=== PATIENT | male | born 1955 | race African-American/Black ===

== ENCOUNTER → 2017-01-18 10:09 | Emergency (ER) | payer OTHER ==
[~2017-01-18 10:09] MED LIST: NS 0.9% 1000 ML* 1,000 ML IV ONE; methylPREDNISolone 125 MG* 2 ML VIAL IV ONE
[2017-01-18 11:07] LABS: Hematocrit 41 % (42-52); Hemoglobin 13.6 g/dl (14.0-18.0); Mean Corpuscular HGB Conc 33 g/dl (31-36); Mean Corpuscular Hemoglobin 29 pg (27-31); Mean Corpuscular Volume 87 fL (80-94); Mean Platelet Volume 7 um3 (7.4-10.4); Red Cell Distribution Width 13 % (10.5-15); White Blood Count 9.8 10^3/ul (3.5-10.8)
[2017-01-18] MEDS: Albuterol/Ipratropium NEB.SOL* Albuterol 2.5 MG/Ipratropium 0.5 MG 3 ML INH SCH (11:17)
--- NOTE | 2017-01-18 11:21 | RAD ---
INDICATION: Short of breath COMPARISON: July 12, 2016 TECHNIQUE: PA and lateral dual-energy views were obtained. FINDINGS: Bones/Soft Tissues: There are no acute bony findings. There is a left-sided cardiac pacemaker. Cardiomediastinal: The cardiomediastinal silhouette is normal. Lungs: There is mild right middle lobe atelectasis. The lungs are otherwise clear. Pleura: There are no pleural effusions. 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 IMPRESSION: MILD RIGHT BASILAR ATELECTASIS. EXAMINATION IS OTHERWISE UNCHANGED. SUGGEST FOLLOW-UP INDICATED.
[2017-01-18 11:27] LABS: Albumin 3.6 g/dL (3.2-5.2); BUN/Creatinine Ratio 22.5 (8-20); C Reactive Protein 19.71 mg/L (< 5.00); Calcium 8.7 mg/dL (8.6-10.3); EGFR African American 111.4 (>60); EGFR Non-African American 86.6 (>60); Globulin 3.5 g/dL (2-4); Potassium 4.3 mmol/L (3.5-5.0); Total Bilirubin 0.4 mg/dL (0.2-1.0); Total Protein 7.1 g/dL (6.4-8.9); Troponin I 0.03 ng/mL (<0.04)
[2017-01-18 11:46] LABS: Urine Bacteria Absent (Absent); Urine Bilirubin Negative (Negative); Urine Glucose 3+(>=500 mg/dL) (Negative); Urine Nitrite Negative (Negative)
[2017-01-18 14:03] VITALS: BP 143/78
--- NOTE | 2017-01-19 19:20 | ED ---
Myke Jean Baptiste Anna, scribed for Chester Rankin MD on 01/18/17 at 1228 . Shortness of Breath - HPI Summary HPI Summary: Patient is a 62 y/o male coming to [facility] presenting with the onset of constant SOB that began this morning at 0800. He additionally has a cough. Denies CP, fever, chills. He received an albuterol treatment via EMS STAFF TOXICOLOGIST, which alleviated the symptoms somewhat. His history is significant for COPD, HTN, DM, and a pacemaker. Patient reports that he smokes "a lot." Patient medications were reviewed on this visit. - History of Current Complaint Chief Complaint: EDShortnessOfBreath Time Seen by Provider: 01/18/17 10:43 Hx Obtained From: Patient, Family/Dental Hygienist Mobile Coordinator - accompanied by friends - Allergy/Home Medications Allergies/Adverse Reactions: Allergies Allergy/AdvReac Type Severity Reaction Status Date / Time Aspirin Allergy Unknown Verified 01/18/17 11:10 Reaction Details Ibuprofen [From Motrin] Allergy Swelling Verified 01/18/17 11:10 Penicillins Allergy Swelling Verified 01/18/17 11:10 PMH/Surg Hx/FS Hx/Imm Hx Endocrine/Hematology History: Reports: Hx Diabetes Cardiovascular History: Reports: Hx Hypertension, Hx Pacemaker/ICD Respiratory History: Reports: Hx Asthma, Hx Chronic Obstructive Pulmonary Disease (COPD) Infectious Disease History: No Infectious Disease History: Denies: Traveled Outside the [place] in Last 30 Days - Family History Known Family History: Positive: Hypertension, Diabetes - Social History Alcohol Use: None Substance Use Type: Reports: None Smoking Status (MU): Heavy Every Day Tobacco Smoker Cessation Counseling: Counseled 3+Min - 10 Min Review of Systems Negative: Fever, Chills Negative: Chest Pain Positive: Shortness Of Breath, Cough All Other Systems Reviewed And Are Negative: Yes Physical Exam - Summary Physical Exam Summary: VITAL SIGNS: Reviewed. GENERAL: Patient is an obese male who is lying comfortable in the stretcher. Patient is in some respiratory distress, but he is able to speak in full sentences. HEAD AND FACE: No signs of trauma. No ecchymosis, hematomas or skull depressions. No sinus tenderness. EYES: PERRLA, EOMI x 2, No injected conjunctiva, no nystagmus. EARS: Hearing grossly intact. Ear canals and tympanic membranes are within normal limits. MOUTH: Oropharynx within normal limits. NECK: Supple, trachea is midline, no adenopathy, no JVD, no carotid bruit, no c- spine tenderness, neck with full ROM. CHEST: Symmetric, no tenderness at palpation LUNGS: Decreased breath sounds bilaterally with wheezing. CVS: Regular rate and rhythm, S1 and S2 present, no murmurs or gallops appreciated. ABDOMEN: Soft, non-tender. No signs of distention. No rebound no guarding, and no masses palpated. Bowel sounds are normal. EXTREMITIES: FROM in all major joints, no edema, no cyanosis or clubbing. NEURO: Alert and oriented x 3. No acute neurological deficits. Speech is normal and follows commands. SKIN: Dry and warm Triage Information Reviewed: Yes Vital Signs On Initial Exam: Initial Vitals Temp Pulse Resp BP Pulse Ox 98.7 F 96 15 140/72 99 01/18/17 10:10 01/18/17 10:10 01/18/17 10:10 01/18/17 10:10 01/18/17 10:10 Vital Signs Reviewed: Yes - Mely Coma Scale Coma Scale Total: 15 Diagnostics - Vital Signs Vital Signs Temp Pulse Resp BP Pulse Ox 01/18/17 12:00 103 16 135/65 97 01/18/17 11:28 22 01/18/17 11:18 96 14 99 01/18/17 11:10 133/65 01/18/17 11:03 98 17 97 01/18/17 11:02 98.7 F 99 15 140/72 99 01/18/17 11:00 98 14 98 01/18/17 10:30 98 15 140/72 98 01/18/17 10:22 100 133/68 99 01/18/17 10:10 98.7 F 96 15 140/72 99 - Laboratory Lab Results: Lab Results 01/18/17 01/18/17 01/18/17 Range/Units 10:50 10:50 10:50 WBC 9.8 (3.5-10.8) 10^3/ul RBC 4.70 (4.0-5.4) 10^6/ul Hgb 13.6 L (14.0-18.0) g/dl Hct 41 L (42-52) % MCV 87 (80-94) fL MCH 29 (27-31) pg MCHC 33 (31-36) g/dl RDW 13 (10.5-15) % Plt Count 272 (150-450) 10^3/ul MPV 7 L (7.4-10.4) um3 Neut % (Auto) 57.0 (38-83) % Lymph % (Auto) 31.1 (25-47) % [place] % (Auto) 8.0 (1-9) % Eos % (Auto) 3.1 (0-6) % Baso % (Auto) 0.8 (0-2) % Absolute Neuts (auto) 5.6 (1.5-7.7) 10^3/ul Absolute Lymphs (auto) 3.1 (1.0-4.8) 10^3/ul Absolute Monos (auto) 0.8 (0-0.8) 10^3/ul Absolute Eos (auto) 0.3 (0-0.6) 10^3/ul Absolute Basos (auto) 0.1 (0-0.2) 10^3/ul Absolute Nucleated RBC 0.01 10^3/ul Nucleated RBC % 0.1 APTT 30.2 (26.0-36.3) seconds Sodium 133 (133-145) mmol/L Potassium 4.3 (3.5-5.0) mmol/L Chloride 100 L (101-111) mmol/L Carbon Dioxide 27 (22-32) mmol/L Anion Gap 6 (2-11) mmol/L BUN 20 (6-24) mg/dL Creatinine 0.89 (0.67-1.17) mg/dL Est GFR ( Amer) 111.4 (>60) Est GFR (Non-Af Amer) 86.6 (>60) BUN/Creatinine Ratio 22.5 H (8-20) Glucose 317 H (70-100) mg/dL Lactic Acid (0.5-2.0) mmol/L Calcium 8.7 (8.6-10.3) mg/dL Total Bilirubin 0.40 (0.2-1.0) mg/dL AST 11 L (13-39) U/L ALT 8 (7-52) U/L Alkaline Phosphatase 104 (34-104) U/L Total Creatine Kinase 70 (10-223) U/L Troponin I 0.03 (<0.04) ng/mL C-Reactive Protein 19.71 H (< 5.00) mg/L B-Natriuretic Peptide ( - 100) pg/mL Total Protein 7.1 (6.4-8.9) g/dL Albumin 3.6 (3.2-5.2) g/dL Globulin 3.5 (2-4) g/dL Albumin/Globulin Ratio 1.0 (1-3) Urine Color Urine Appearance Urine pH (5-9) Ur Specific [place] (1.010-1.030) Urine Protein (Negative) Urine Ketones (Negative) Urine Blood (Negative) Urine Nitrate (Negative) Urine Bilirubin (Negative) Urine Urobilinogen (Negative) Ur Leukocyte Esterase (Negative) Urine WBC (Auto) (Absent) Urine RBC (Auto) (Absent) Ur Squamous Epith Cells (Absent) Urine Bacteria (Absent) Urine Glucose (Negative) 01/18/17 01/18/17 01/18/17 Range/Units 10:50 10:50 11:23 WBC (3.5-10.8) 10^3/ul RBC (4.0-5.4) 10^6/ul Hgb (14.0-18.0) g/dl Hct (42-52) % MCV (80-94) fL MCH (27-31) pg MCHC (31-36) g/dl RDW (10.5-15) % Plt Count (150-450) 10^3/ul MPV (7.4-10.4) um3 Neut % (Auto) (38-83) % Lymph % (Auto) (25-47) % [place] % (Auto) (1-9) % Eos % (Auto) (0-6) % Baso % (Auto) (0-2) % Absolute Neuts (auto) (1.5-7.7) 10^3/ul Absolute Lymphs (auto) (1.0-4.8) 10^3/ul Absolute Monos (auto) (0-0.8) 10^3/ul Absolute Eos (auto) (0-0.6) 10^3/ul Absolute Basos (auto) (0-0.2) 10^3/ul Absolute Nucleated RBC 10^3/ul Nucleated RBC % APTT (26.0-36.3) seconds Sodium (133-145) mmol/L Potassium (3.5-5.0) mmol/L Chloride (101-111) mmol/L Carbon Dioxide (22-32) mmol/L Anion Gap (2-11) mmol/L BUN (6-24) mg/dL Creatinine (0.67-1.17) mg/dL Est GFR ( Amer) (>60) Est GFR (Non-Af Amer) (>60) BUN/Creatinine Ratio (8-20) Glucose (70-100) mg/dL Lactic Acid 1.2 (0.5-2.0) mmol/L Calcium (8.6-10.3) mg/dL Total Bilirubin (0.2-1.0) mg/dL AST (13-39) U/L ALT (7-52) U/L Alkaline Phosphatase (34-104) U/L Total Creatine Kinase (10-223) U/L Troponin I (<0.04) ng/mL C-Reactive Protein (< 5.00) mg/L B-Natriuretic Peptide 20 ( - 100) pg/mL Total Protein (6.4-8.9) g/dL Albumin (3.2-5.2) g/dL Globulin (2-4) g/dL Albumin/Globulin Ratio (1-3) Urine Color Straw Urine Appearance Clear Urine pH 5.0 (5-9) Ur Specific [place] 1.011 (1.010-1.030) Urine Protein 2+(100 mg/dl) H (Negative) Urine Ketones Negative (Negative) Urine Blood Negative (Negative) Urine Nitrate Negative (Negative) Urine Bilirubin Negative (Negative) Urine Urobilinogen Negative (Negative) Ur Leukocyte Esterase 1+ H (Negative) Urine WBC (Auto) Trace(0-5/hpf) (Absent) Urine RBC (Auto) Absent (Absent) Ur Squamous Epith Cells Present H (Absent) Urine Bacteria Absent (Absent) Urine Glucose 3+(>=500 mg/dl) H (Negative) Result Diagrams: 01/18/17 10:50 01/18/17 10:50 Lab Statement: Any lab studies that have been ordered have been reviewed, and results considered in the medical decision making process. - Radiology CXR Xray Interpretation: Positive (See Comments) Radiology Interpretation Completed By: Radiologist - IMPRESSION: MILD RIGHT BASILAR ATELECTASIS. EXAMINATION IS OTHERWISE UNCHANGED. SUGGEST FOLLOW-UP INDICATED. - EKG 1015 Cardiac Rate: NL - 95 bpm EKG Rhythm: Sinus Rhythm ST Segment: Normal Ectopy: None EKG Interpretation: No ST elevations Course/Dx - Course Assessment/Plan: Test results WNL except slight anemia, CRP of 19.71, Glucose of 317.UA reveals no UTI. CXR shows atelectasis. In the ED course, pt was given IV fluids, duonebs and Solumedrol, and the symptoms improved. At this point, the pts O2 sat is 98 on RA. HR is 86. On PE, his lungs are clear to auscultation bilaterally. Pt was given smoking cessation instructions. The pt will be d/c home with f/u from PCP. A Rx for Prednisone was given. Was instructed to return if he experiences worsening SOB, fever, chills, or CP. He understands and agrees. I discussed all the findings and test results with the patient. Patient was instructed to return to the emergency room immediately if any of the symptoms return or worsens. Plan of care was discussed with the patient and understands and agrees. All questions were answered at patient satisfaction. There were no further complaints or concerns. Lung exam before discharge: CTA B/L. Good air exchange. No wheezing or crackles heard. CVS: S1 and S2 present. No murmurs appreciated. Patient is alert and oriented x 3. Patient is hemodynamically stable. Patient will be discharged home with follow up assistant credit manager in the next 2-3 days - Diagnoses Differential Diagnosis/HQI/PQRI: Positive: Asthma, Bronchitis, COPD Exacerbation Provider Diagnoses: COPD exacerbation Discharge - Discharge Plan Condition: Stable Disposition: HOME Prescriptions: predniSONE TAB* [Deltasone TAB*] 40 mg PO DAILY #8 tab Patient Education Materials: Prednisone (By mouth), COPD (Chronic Obstructive Pulmonary Disease) (ED), How to Stop Smoking (ED) Referrals: Jens Rodríguez [Primary Care Provider] - Additional Instructions: Follow up with primary care physician in 2-3 days. Return to ED for new or worsening symptoms. The documentation as recorded by the Myke gatica Anna accurately reflects the service I personally performed and the decisions made by me, Chester Rankin MD.
--- NOTE | 2017-01-20 09:55 | PN ---
Progress Note - Progress Note Note: Patient urine culture grew strep group B 10-25,000 which is likely containment so no further action needed.
== END | disposition home or self-care (01) ==
LOC: ED 10:09
DX: J44.1 Chronic obstructive pulmonary disease with (acute) exacerbation (principal); I10 Essential (primary) hypertension; E11.9 Type 2 diabetes mellitus without complications; Z95.0 Presence of cardiac pacemaker; Z88.0 Allergy status to penicillin; Z88.6 Allergy status to analgesic agent; F17.200 Nicotine dependence, unspecified, uncomplicated
CPT/HCPCS: 36415; 71020; 80053; 81003; 81015; 82550; 83605; 83880; 84484; 85025; 85730; 86140; 87077; 87086; 93005; 94640; 96360; 96374; 99283; A9270-GY; J2930

== ENCOUNTER 2017-05-17 17:43 | Emergency (ER) | payer OTHER ==
[2017-05-17 20:43] LABS: Urine Bacteria 1+ (Absent); Urine Bilirubin 1+ (Negative); Urine Glucose 1+(50 mg/dL) (Negative); Urine Nitrite Negative (Negative)
--- NOTE | 2017-05-17 20:57 | ED ---
Complaint/Male - History of Current Complaint Chief Complaint: EDUrogenitalProblems Time Seen by Provider: 05/17/17 19:20 - Allergies/Home Medications Allergies/Adverse Reactions: Allergies Allergy/AdvReac Type Severity Reaction Status Date / Time Aspirin Allergy Unknown Verified 01/18/17 11:10 Reaction Details Ibuprofen [From Motrin] Allergy Swelling Verified 01/18/17 11:10 Penicillins Allergy Swelling Verified 01/18/17 11:10 PMH/Surg Hx/FS Hx/Imm Hx Endocrine/Hematology History: Reports: Hx Diabetes Cardiovascular History: Reports: Hx Hypertension, Hx Pacemaker/ICD Respiratory History: Reports: Hx Asthma, Hx Chronic Obstructive Pulmonary Disease (COPD) Infectious Disease History: Yes Infectious Disease History: Denies: Traveled Outside the [place] in Last 30 Days - Family History Known Family History: Positive: Hypertension, Diabetes - Social History Alcohol Use: Rare Substance Use Type: Reports: None Smoking Status (MU): Former Smoker Physical Exam Vital Signs On Initial Exam: Initial Vitals Temp Pulse Resp BP Pulse Ox 96.9 F 125 17 116/75 96 05/17/17 17:58 05/17/17 17:58 05/17/17 17:58 05/17/17 17:58 05/17/17 17:58 - Mely Coma Scale Coma Scale Total: 15 Diagnostics - Vital Signs Vital Signs Temp Pulse Resp BP Pulse Ox 05/17/17 17:58 96.9 F 125 17 116/75 96 - Laboratory Lab Results: Lab Results 05/17/17 Range/Units 20:19 Urine Color [place] Urine Appearance Cloudy Urine pH 5.0 (5-9) Ur Specific [place] 1.025 (1.010-1.030) Urine Protein 2+(100 mg/dl) H (Negative) Urine Ketones Trace H (Negative) Urine Blood Negative (Negative) Urine Nitrate Negative (Negative) Urine Bilirubin 1+ (Negative) Urine Urobilinogen Positive H (Negative) Ur Leukocyte Esterase 3+ H (Negative) Urine WBC (Auto) 3+(>20/hpf) H (Absent) Urine RBC (Auto) Absent (Absent) Ur Squamous Epith Cells Present H (Absent) Urine Bacteria 1+ H (Absent) Hyaline Casts Present H (Absent) Granular Casts Present H (Absent) Urine Glucose 1+(50 mg/dl) H (Negative) Lab Statement: Any lab studies that have been ordered have been reviewed, and results considered in the medical decision making process.
[2017-05-17] MEDS ORDERED: HYDROcodone/ACETAMIN 5-325 MG* 1 TAB PO ONE (21:02)
--- NOTE | 2017-05-17 21:02 | ED ---
GI/ HPI - HPI Summary HPI Summary: 62 male presents to ED with complaints of scrotum/tenderness pain and swelling that began yesterday and worsened today. Patient states he also began to have discharge from the area today. Denies any urinary complaints. Normal bowel movements without blood. Denies abdominal pain. Denies ever having something like this in the past. Denies known fever or chills. Denies generalized feeling of illness. PMHx significant for DM, HTN, pacemaker. Has not taken any medications other than one norco earlier today that helped alleviate his pain. Describes discharge to be yellow/clear. Denies know STD history. No other complaints at this time. - History of Current Complaint Chief Complaint: EDUrogenitalProblems Time Seen by Provider: 05/17/17 19:20 Stated Complaint: NAUSEA/FEVER/TESTICLES SWOLLEN Hx Obtained From: Patient Onset/Duration: Started Days Ago, Still Present, Worse Since Timing: Constant Severity: Moderate Current Severity: Moderate Pain Intensity: 5 Additional Locations for Males: Scrotum Pain Characteristics: Aching, Pressure Additional Signs & Symptoms: Positive: Penile Swelling - scrotal swelling, Penile Discharge - scrotal discharge Aggravating Factor(s): Palpation, Movement Alleviating Factor(s): Medication - norco - Allergy/Home Medications Allergies/Adverse Reactions: Allergies Allergy/AdvReac Type Severity Reaction Status Date / Time Aspirin Allergy Unknown Verified 01/18/17 11:10 Reaction Details Ibuprofen [From Motrin] Allergy Swelling Verified 01/18/17 11:10 Penicillins Allergy Swelling Verified 01/18/17 11:10 PMH/Surg Hx/FS Hx/Imm Hx Endocrine/Hematology History: Reports: Hx Diabetes Cardiovascular History: Reports: Hx Hypertension, Hx Pacemaker/ICD Respiratory History: Reports: Hx Asthma, Hx Chronic Obstructive Pulmonary Disease (COPD) - Surgical History Surgery Procedure, Year, and Place: n/a - Immunization History Immunizations Up to Date: Yes Infectious Disease History: Yes Infectious Disease History: Denies: Traveled Outside the [place] in Last 30 Days - Family History Known Family History: Positive: Hypertension, Diabetes - Social History Alcohol Use: Rare Substance Use Type: Reports: None Smoking Status (MU): Former Smoker Review of Systems Constitutional: Negative Cardiovascular: Negative Respiratory: Negative Gastrointestinal: Negative Positive: other - scrotal pain and swelling Positive: Other - scrotal pain and swelling Neurological: Negative All Other Systems Reviewed And Are Negative: Yes Physical Exam Triage Information Reviewed: Yes Vital Signs On Initial Exam: Initial Vitals Temp Pulse Resp BP Pulse Ox 96.9 F 125 17 116/75 96 05/17/17 17:58 05/17/17 17:58 05/17/17 17:58 05/17/17 17:58 05/17/17 17:58 tachycardia noted Vital Signs Reviewed: Yes Appearance: Positive: Well-Appearing, No Pain Distress, Well-Nourished Skin: Positive: Warm, Skin Color Reflects Adequate Perfusion, Dry, Erythema @ - and significant edema with pain over scrotum/testicles with yellow/clear drainage, appears to be cellulitis. Negative: Cold, Soft Head/Face: Positive: Normal Head/Face Inspection Eyes: Positive: Conjunctiva Clear ENT: Positive: Hearing grossly normal Neck: Positive: Supple, Nontender, No Lymphadenopathy Respiratory/Lung Sounds: Positive: Clear to Auscultation, Breath Sounds Present. Negative: Decreased Breath Sounds, Rales, Rhonchi, Wheezes Cardiovascular: Positive: Normal, RRR, Pulses are Symmetrical in both Upper and Lower Extremities. Negative: Murmur, Rub Abdomen Description: Positive: Nontender, No Organomegaly, Soft. Negative: CVA Tenderness (R), CVA Tenderness (L), Distended, Guarding Bowel Sounds: Positive: Present Male Genital Exam: Positive: scrotum tenderness (R), scrotum tenderness (L), testicular tenderness (R), testicular tenderness (L), other - yellow to clear drainage, erythematous and edematous scrotal sac/skin appears to be cellulitis versus abscess, odor noted, tender to touch. penis appears normal without discharge swelling or tenderness. difficult to palpate testes due to edema. no obvious necrotizing faciitis or gangrene noted Musculoskeletal: Positive: Normal, Strength/ROM Intact Neurological: Positive: Normal, Sensory/Motor Intact, Alert, Oriented to Person Place, Time - painful due to scrotal tenderness and swelling, CN Intact II-III, Normal Gait Psychiatric: Positive: Affect/Mood Appropriate - Mely Coma Scale Coma Scale Total: 15 Diagnostics - Vital Signs Vital Signs Temp Pulse Resp BP Pulse Ox 05/17/17 17:58 96.9 F 125 17 116/75 96 - Laboratory Lab Results: Lab Results 05/17/17 Range/Units 20:19 Urine Color [place] Urine Appearance Cloudy Urine pH 5.0 (5-9) Ur Specific [place] 1.025 (1.010-1.030) Urine Protein 2+(100 mg/dl) H (Negative) Urine Ketones Trace H (Negative) Urine Blood Negative (Negative) Urine Nitrate Negative (Negative) Urine Bilirubin 1+ (Negative) Urine Urobilinogen Positive H (Negative) Ur Leukocyte Esterase 3+ H (Negative) Urine WBC (Auto) 3+(>20/hpf) H (Absent) Urine RBC (Auto) Absent (Absent) Ur Squamous Epith Cells Present H (Absent) Urine Bacteria 1+ H (Absent) Hyaline Casts Present H (Absent) Granular Casts Present H (Absent) Urine Glucose 1+(50 mg/dl) H (Negative) Result Diagrams: 05/17/17 22:05 05/17/17 22:05 Lab Statement: Any lab studies that have been ordered have been reviewed, and results considered in the medical decision making process. - Ultrasound No standard instances Ultrasound Interpretation: Positive (See Comments) - MARKED SCROTAL SOFT TISSUE SWELLING AND COMPLEX FLUID COLLECTIONS AROUND BOTH TESTICLES MOST CONSISTENT WITH SCROTAL CELLULITIS. RECOMMEND CLINICAL CORRELATION. CONSIDER UROLOGIC CONSULTATION. Ultrasound Interpretation Completed By: Radiologist Re-Evaluation - Re-Evaluation First Eval Re-Evaluation Time: 22:00 Change: Improved - patient had some pain relief, updated on current plan agrees and understands. would like to be transferred to [facility] if able. GIGU Course/Dx - Course Course Of Treatment: labs, urinalysis and ultrasound of testes obtained. showed significant scrotal cellulitis. very high WBC. abnormal gluecose and urinalysis shows uti. Patient does have diabetes. given fluids and IV antibitoics, vanco and levofloxacin, pain management (1 norco). Spoke with Dr Grimm, hospitalist at 9:30pm who stated no urologist production control technologist, obtain CT pelvis to rule out gangrene and transfer. Spoke with [facility] Dr Colunag at 10:24pm who accepted transfer ER to ER. Hold off on CT and they will obtain while patient is there, as it would delay transfer. Therefore was not obtained while here. Given fluids and medication, meets sepsis protocol although afebrile. Will be transferred via [facility], continuing fluids and antibiotics on teletypesetter monitor. Check sugar en route. - Diagnoses Differential Diagnoses - Male: Epididymitis, Orchitis, Phimosis/Paraphimosis, STD, Testicular Torsion, Urinary Tract Infection, Other - cellulitis Provider Diagnoses: Cellulitis of scrotum - Physician Notifications Discussed Care Of Patient With: Dr Grimm, Dr Kasper, Dr Colunga Time Discussed With Above Provider: 22:30 Instructed by Provider To: Transfer Admit/Transition Orders Completed By ED Provider: Yes Reason For Transfer: Specialty available at [facility] but not production control technologist. Discharge - Discharge Plan Condition: Stable Disposition: TRANS HIGHER LVL OF CARE FAC Referrals: Jens Rodríguez [Primary Care Provider] -
--- NOTE | 2017-05-17 21:10 | RAD ---
INDICATION: Swelling painful scrotum. COMPARISON: There are no prior studies available for comparison. TECHNIQUE: Multiple real-time images of the testicles were obtained including color Doppler images and Doppler tracings. FINDINGS: There is marked diffuse scrotal soft tissue swelling. The testicles are small in size and slightly heterogeneous in echogenicity. No intratesticular mass is seen. The right testicle measured 3.1 x 2.4 x 2.4 cm. The left testicle measured 1.9 x 1.5 x 1.4 cm. There are complex cystic and solid fluid collections surrounding both testicles more prominent surrounding the left testicle. There is also increased blood flow surrounding these collections. There is blood flow within both testicles. There is no evidence for testicular torsion. The epididymides appear slightly prominent right greater than left. IMPRESSION: MARKED SCROTAL SOFT TISSUE SWELLING AND COMPLEX FLUID COLLECTIONS AROUND BOTH TESTICLES MOST CONSISTENT WITH SCROTAL CELLULITIS. RECOMMEND CLINICAL CORRELATION. CONSIDER UROLOGIC CONSULTATION.
[2017-05-17] MEDS ORDERED: Levofloxacin 750 MG IVPREMIX(* 750 MG/150 ML BAG IVPB ONE (22:21)
[2017-05-17 22:23] LABS: Hematocrit 37 % (42-52); Hemoglobin 12.4 g/dl (14.0-18.0); Mean Corpuscular HGB Conc 33 g/dl (31-36); Mean Corpuscular Hemoglobin 29 pg (27-31); Mean Corpuscular Volume 87 fL (80-94); Mean Platelet Volume 7 um3 (7.4-10.4); Red Blood Count 4.29 10^6/ul (4.0-5.4); Red Cell Distribution Width 13 % (10.5-15); White Blood Count 27.8 10^3/ul (3.5-10.8)
[2017-05-17 22:24] LABS: Comments Flag Yes
[2017-05-17 22:25] LABS: Add Diff/Slide Review? Slide Review Added
[2017-05-17 22:38] LABS: Albumin 3.1 g/dL (3.2-5.2); BUN/Creatinine Ratio 26.8 (8-20); Calcium 9.8 mg/dL (8.6-10.3); EGFR African American 76.7 (>60); EGFR Non-African American 59.6 (>60); Globulin 5.5 g/dL (2-4); Potassium 4.8 mmol/L (3.5-5.0); Total Bilirubin 0.6 mg/dL (0.2-1.0); Total Protein 8.6 g/dL (6.4-8.9)
[2017-05-17] MEDS: NS 0.9% 1000 ML* 2,000 ML IV ONE (22:57)
[2017-05-17] MEDS ORDERED: Vancomycin 1500 MG IV - x ONCE IVPB ONE ×2 (23:00)
[2017-05-17] MEDS ORDERED: Vancomycin(*) 1,000 MG VIAL IVPB SCH (23:00)
[2017-05-17 23:25] VITALS: BP 123/67
== END 2017-05-17 23:23 | disposition short-term general hospital (02) ==
LOC: ED 17:43
DX: N49.2 Inflammatory disorders of scrotum (principal)
CPT/HCPCS: 36415; 76870; 80053; 81003; 81015; 85025; 87086; 87491; 87591; 96365; 99284; J3370